=== PATIENT | male | born 1970 | race Caucasian/White ===

== ENCOUNTER 2022-12-19 21:14 | Inpatient (IN) | payer OTHER, MEDICAID ==
[~2022-12-19] VITALS: Ht 160 cm; Wt 63.5 kg
[~2022-12-19 21:14] MED LIST: CARB300C PO; CHLO1TAB42 PO; CLOB20TA PO; DOCU250S72 PO; GEMF600T5 PO; IRON1TAB69 PO; LACO200T PO; LEVE100021 PO; LEVO0.2T5 PO; POTA20SO16 PO; SUD30 PO; [UNRECOGNIZED DRUG - CODE] PO; [UNRECOGNIZED DRUG - CODE] TP
[2022-12-19 21:15] VITALS: BP 117/64; PULSE 63; RESP 18; TEMP 98.4; O2SAT 97
[2022-12-20 01:04] LABS: BASOPHILS # (AUTO) 0.1 K/uL (0.00-0.22); BASOPHILS % (AUTO) 0.9 % (0.0-2.0); EOSINOPHILS # (AUTO) 0.3 K/uL (0-0.4); EOSINOPHILS % (AUTO) 4.4 % (0.0-4.0); HEMATOCRIT 45.2 % (36-52); HEMOGLOBIN 15.2 g/dL (12.0-18.0); LYMPHOCYTES # (AUTO) 3.3 K/uL (2.0-11.5); LYMPHOCYTES % (AUTO) 45.3 % (20.5-51.1); MEAN CORPUSCULAR HEMOGLOBIN 31 pg (27-31); MEAN CORPUSCULAR HGB CONC 34 g/dL (33-37); MONOCYTES # (AUTO) 0.9 K/uL (0.8-1.0); MONOCYTES % (AUTO) 12.7 % (1.7-9.3); NEUTROPHILS # (AUTO) 2.6 K/uL (1.8-7.7); NEUTROPHILS % (AUTO) 36.7 % (42.2-75.2); PLATELET COUNT (AUTO) 249 K/uL (140-450); RED BLOOD CELL COUNT(AUTO) 4.86 MIL/uL (4.20-6.10); RED CELL DISTRIBUTION WIDTH 13.7 % (11.6-13.7); WHITE BLOOD COUNT (AUTO) 7.2 K/uL (4.8-10.8)
[2022-12-20 01:14] LABS: INR 1.05 (0.8-1.2)
[2022-12-20 01:18] LABS: ALBUMIN 3.3 g/dL (3.4-5.0); ANION GAP 8.1 (8-16); CALCIUM 8.7 mg/dL (8.5-10.1); CARBON DIOXIDE 30.1 mmol/L (21-32); CREATININE 0.7 mg/dL (0.6-1.3); POTASSIUM 4.2 mmol/L (3.5-5.1); TOTAL BILIRUBIN 0.3 mg/dL (0.0-1.0); TOTAL PROTEIN, SERUM 7.3 g/dL (6.4-8.2)
[2022-12-20 01:23] LABS: LIPASE 103 U/L (73-393)
[2022-12-20 01:24] LABS: LACTIC ACID 0.9 mmol/L (0.4-2.0)
[2022-12-20 03:33] LABS: APPEARANCE,URINE CLEAR (CLEAR); BILIRUBIN,URINE NEGATIVE (NEGATIVE); BLOOD, URINE 2+ (NEGATIVE); COLOR,URINE YELLOW (YELLOW); LEUKOCYTE ESTERASE ,URINE NEGATIVE (NEGATIVE); NITRITE, URINE NEGATIVE (NEGATIVE); PROTEIN,URINE NEGATIVE (NEGATIVE); UGLUCOSE NEGATIVE (NEGATIVE); UROBILINOGEN,URINE 0.2 EU/dL (0.2 - 1)
[2022-12-20 03:42] LABS: BACTERIA,URINE FEW /HPF (None Seen); MUCUS,URINE 2+ /LPF (None Seen); RBC,URINE 20-50 /HPF (0-5); SQUAMOUS EPITHELIAL CELL,UR 4-10 (MOD) /LPF (0-3 (FEW)); TRICHOMONAS,URINE None Seen /HPF (None Seen); WBC,URINE 0-5 /HPF (0-5); YEAST,URINE None Seen /HPF (None Seen)
[2022-12-20] MEDS ORDERED: cefTRIAXone 1,000 MG VIAL ONE (06:40)
[2022-12-20] MEDS ORDERED: HYDROcodone/APAP 7.5/325 MG 1 TAB PO PRN (07:55)
[2022-12-20] MEDS ORDERED: ZOLPIDEM 5 MG TAB PO PRN (07:55)
[2022-12-20] MEDS ORDERED: ONDANSETRON 4 MG/2 ML VIAL IM/IVP PRN (07:55)
[2022-12-20] MEDS ORDERED: guaiFENesin DM 200/20 MG-10 ML 10 ML UDC PO PRN (07:55)
[2022-12-20] MEDS ORDERED: ACETAMINOPHEN 325 MG TAB PO PRN (07:55)
[2022-12-20] MEDS ORDERED: POTASSIUM CHLORIDE 10 MEQ TABER PO PRN (07:55)
[2022-12-20] MEDS ORDERED: DOCUSATE SODIUM 100 MG GELCAP PO PRN (07:55)
[2022-12-20 08:30] VITALS: O2SAT 98
[2022-12-20] MEDS: NACL 0.9% 1,000 ML IV SCH ×2 (09:00→22:44)
[2022-12-20] MEDS ORDERED: CLOBAZAM 20 MG PO SCH (09:00)
[2022-12-20] MEDS ORDERED: CRUSHER, PILL MC ONE (09:18)
[2022-12-20] MEDS: levETIRAcetam 500 MG TAB PO SCH ×2 (09:27→21:34)
[2022-12-20] MEDS: LEVOTHYROXINE 0.1 MG TAB PO SCH (09:32)
[2022-12-20] MEDS: carBAMazepine 200 MG TAB PO SCH ×2 (09:32→21:35)
[2022-12-20] MEDS: PANTOPRAZOLE 40 MG TABEC PO SCH (09:33)
[2022-12-20 09:35] LABS: INR 1.08 (0.8-1.2); PARTIAL THROMBOPLASTIN TIME 26.5 secs (22-35.6); PROTHROMBIN TIME 11.3 secs (10.8-13.4)
[2022-12-20 09:45] LABS: CHOL/HDL RATIO 2.4 (1-4.5); FREE T4 (FREE THYROXINE) 1.02 ng/dL (0.76-1.46); MAGNESIUM 2.2 mg/dL (1.8-2.4); PHOSPHORUS 3.2 mg/dL (2.5-4.9); THYROID STIMULATING HORMONE 1.26 uIU/mL (0.34-3.74)
[2022-12-20] MEDS: gemfibroziL 600 MG TAB PO SCH (10:17)
[2022-12-20] MEDS: LACOSAMIDE 100 MG TAB PO SCH ×2 (10:18→21:37)
[2022-12-20 11:16] VITALS: PULSE 94; RESP 18; O2SAT 95
[2022-12-20 13:03] VITALS: BP 153/82; PULSE 94; RESP 18; TEMP 98.2; O2SAT 95
[2022-12-20 16:00] VITALS: BP 121/70; PULSE 84; RESP 18; TEMP 97; O2SAT 98
[2022-12-20 20:00] VITALS: BP 119/87; PULSE 77; RESP 17; TEMP 97.4; O2SAT 96
[2022-12-20] MEDS: CLOBAZAM 20 MG PO SCH (21:00)
[2022-12-21 04:00] VITALS: BP 123/74; PULSE 80; RESP 18; TEMP 97.6; O2SAT 97
[2022-12-21 04:55] LABS: BASOPHILS % (AUTO) 0.3 % (0.0-2.0); EOSINOPHILS # (AUTO) 0.1 K/uL (0-0.4); EOSINOPHILS % (AUTO) 1.7 % (0.0-4.0); HEMATOCRIT 41.3 % (36-52); HEMOGLOBIN 13.8 g/dL (12.0-18.0); LYMPHOCYTES # (AUTO) 2.7 K/uL (2.0-11.5); LYMPHOCYTES % (AUTO) 33.7 % (20.5-51.1); MEAN CORPUSCULAR HEMOGLOBIN 31 pg (27-31); MEAN CORPUSCULAR HGB CONC 33 g/dL (33-37); MEAN CORPUSCULAR VOLUME 92.2 fL (80-94); MONOCYTES # (AUTO) 0.9 K/uL (0.8-1.0); MONOCYTES % (AUTO) 10.9 % (1.7-9.3); NEUTROPHILS # (AUTO) 4.2 K/uL (1.8-7.7); NEUTROPHILS % (AUTO) 53.4 % (42.2-75.2); PLATELET COUNT (AUTO) 235 K/uL (140-450); RED BLOOD CELL COUNT(AUTO) 4.48 MIL/uL (4.20-6.10); RED CELL DISTRIBUTION WIDTH 13.2 % (11.6-13.7); WHITE BLOOD COUNT (AUTO) 7.9 K/uL (4.8-10.8)
[2022-12-21 05:11] LABS: ANION GAP 9.9 (8-16); CALCIUM 8.2 mg/dL (8.5-10.1); CARBON DIOXIDE 26.9 mmol/L (21-32); CREATININE 0.5 mg/dL (0.6-1.3); POTASSIUM 3.8 mmol/L (3.5-5.1)
[2022-12-21] MEDS: CLOBAZAM 20 MG PO SCH (06:06)
[2022-12-21] MEDS: LEVOTHYROXINE 0.1 MG TAB PO SCH (06:11)
[2022-12-21 07:23] LABS: AMPHETAMINE, URINE NEGATIVE ng/ml (NEG <=1000); BARBITURATE, URINE NEGATIVE ng/ml (NEG <=200); BENZODIAZEPINE, URINE POSITIVE ng/mL (NEG <=200); CANNABINOID, URINE NEGATIVE ng/mL (NEG <=50); COCAINE, URINE NEGATIVE ng/mL (NEG <=300); OPIATE, URINE NEGATIVE ng/mL (NEG <=2000); PHENCYCLIDINE SCREEN,URINE NEGATIVE ng/mL (NEG <=25)
[2022-12-21] MEDS: NACL 0.9% 1,000 ML IV SCH (07:27)
[2022-12-21 08:00] VITALS: BP 142/73; PULSE 80; PULSE 93; RESP 17; RESP 18; TEMP 97.1; O2SAT 100; O2SAT 96
[2022-12-21] MEDS ORDERED: ALBU0.0912 INH (08:49)
[2022-12-21] MEDS ORDERED: LEVO-481 PO (08:49)
[2022-12-21] MEDS ORDERED: AZITHROMYCIN 500 MG in DEXTROSE 5% 250 ML IV SCH (09:00)
[2022-12-21] MEDS: gemfibroziL 600 MG TAB PO SCH (10:38)
[2022-12-21] MEDS: levETIRAcetam 500 MG TAB PO SCH (10:38)
[2022-12-21] MEDS: carBAMazepine 200 MG TAB PO SCH (10:39)
[2022-12-21] MEDS: LACOSAMIDE 100 MG TAB PO SCH (10:40)
[2022-12-21] MEDS: PANTOPRAZOLE 40 MG TABEC PO SCH (10:41)
[2022-12-21] MEDS ORDERED: ALBUTEROL SULFATE/IPRATROPIU 3 ML SOL IH SCH (11:00)
[2022-12-21 11:06] VITALS: PULSE 83; RESP 20; O2SAT 94
[2022-12-23 07:11] LABS: HEMOGLOBIN A1C 5.9 % (4.8-5.6)
== END 2022-12-21 14:50 | DRG 640 ==
LOC: MED 21:14 → MMU 12-20 06:28 → MTU 12-20 06:28
PROVIDERS: ADMIT Family Medicine; ATTEND Family Medicine
DX: E86.0 Dehydration (principal); J69.0 Pneumonitis due to inhalation of food and vomit; E44.1 Mild protein-calorie malnutrition; G40.812 Lennox-Gastaut syndrome, not intractable, without status epilepticus; R73.9 Hyperglycemia, unspecified; G80.9 Cerebral palsy, unspecified; Z20.822 Contact with and (suspected) exposure to COVID-19; Z79.899 Other long term (current) drug therapy; Z68.24 Body mass index [BMI] 24.0-24.9, adult
CPT/HCPCS: 36415; 71045; 80048; 80053; 80305; 81001; 82150; 83036; 83605; 83690; 83735; 83880; 84100; 84436; 84439; 84443; 84479; 84484; 85025; 85610; 85730; 87040; 87081; 87086; 93005; 96374; 99285; J0456; J0696; J7060; Q0092